=== PATIENT | female | born 1955 | race Caucasian/White ===

== ENCOUNTER → 2018-01-26 | Outpatient (CLI) | payer BC, OTHER | LOC: HYPER 07:00 | DX: T63.331A Toxic effect of venom of brown recluse spider, accidental (unintentional), initial encounter (principal); E03.9 Hypothyroidism, unspecified; G47.33 Obstructive sleep apnea (adult) (pediatric); E78.5 Hyperlipidemia, unspecified; K21.9 Gastro-esophageal reflux disease without esophagitis; Y92.89 Other specified places as the place of occurrence of the external cause; K74.60 Unspecified cirrhosis of liver ==

== ENCOUNTER → 2018-02-02 | Outpatient (CLI) | payer BC, OTHER | LOC: HYPER 06:49 | DX: S80.861D Insect bite (nonvenomous), right lower leg, subsequent encounter (principal); E03.9 Hypothyroidism, unspecified; E78.5 Hyperlipidemia, unspecified; K21.9 Gastro-esophageal reflux disease without esophagitis; M10.9 Gout, unspecified; G47.33 Obstructive sleep apnea (adult) (pediatric); Z87.01 Personal history of pneumonia (recurrent); T63.331D Toxic effect of venom of brown recluse spider, accidental (unintentional), subsequent encounter ==

== ENCOUNTER → 2018-04-12 | Outpatient (CLI) | payer BC, OTHER | LOC: HYPER 07:18 | DX: L97.822 Non-pressure chronic ulcer of other part of left lower leg with fat layer exposed (principal); I87.2 Venous insufficiency (chronic) (peripheral); L95.9 Vasculitis limited to the skin, unspecified; E03.9 Hypothyroidism, unspecified; E78.5 Hyperlipidemia, unspecified; K21.9 Gastro-esophageal reflux disease without esophagitis; M10.9 Gout, unspecified; G47.33 Obstructive sleep apnea (adult) (pediatric); J15.7 Pneumonia due to Mycoplasma pneumoniae ==

== ENCOUNTER → 2018-04-19 | Outpatient (CLI) | payer BC, OTHER | LOC: HYPER 07:14 | DX: L97.822 Non-pressure chronic ulcer of other part of left lower leg with fat layer exposed (principal); L95.9 Vasculitis limited to the skin, unspecified; R60.0 Localized edema; E03.9 Hypothyroidism, unspecified; E78.5 Hyperlipidemia, unspecified; G47.33 Obstructive sleep apnea (adult) (pediatric); K21.9 Gastro-esophageal reflux disease without esophagitis; K74.60 Unspecified cirrhosis of liver; M19.90 Unspecified osteoarthritis, unspecified site; M10.9 Gout, unspecified; M06.4 Inflammatory polyarthropathy ==

== ENCOUNTER → 2018-05-03 | Outpatient (CLI) | payer BC, OTHER | LOC: HYPER 04-26 08:49 | DX: L97.822 Non-pressure chronic ulcer of other part of left lower leg with fat layer exposed (principal); L95.9 Vasculitis limited to the skin, unspecified; R60.0 Localized edema; E03.9 Hypothyroidism, unspecified; E78.5 Hyperlipidemia, unspecified; G47.33 Obstructive sleep apnea (adult) (pediatric); K21.9 Gastro-esophageal reflux disease without esophagitis; K74.60 Unspecified cirrhosis of liver; K75.4 Autoimmune hepatitis; M06.4 Inflammatory polyarthropathy; M35.00 Sjogren syndrome, unspecified; M19.90 Unspecified osteoarthritis, unspecified site; M10.9 Gout, unspecified ==

== ENCOUNTER → 2018-05-10 | Outpatient (CLI) | payer BC, OTHER | LOC: HYPER 06:57 | DX: L97.822 Non-pressure chronic ulcer of other part of left lower leg with fat layer exposed (principal); L95.9 Vasculitis limited to the skin, unspecified; E03.9 Hypothyroidism, unspecified; E78.5 Hyperlipidemia, unspecified; G47.33 Obstructive sleep apnea (adult) (pediatric); K21.9 Gastro-esophageal reflux disease without esophagitis; K74.60 Unspecified cirrhosis of liver; K75.4 Autoimmune hepatitis; M35.00 Sjogren syndrome, unspecified; M06.4 Inflammatory polyarthropathy; M10.9 Gout, unspecified ==

== ENCOUNTER → 2018-05-17 | Outpatient (CLI) | payer BC, OTHER | LOC: HYPER 06:54 | DX: L97.822 Non-pressure chronic ulcer of other part of left lower leg with fat layer exposed (principal); L95.9 Vasculitis limited to the skin, unspecified; E03.9 Hypothyroidism, unspecified; E78.5 Hyperlipidemia, unspecified; G47.33 Obstructive sleep apnea (adult) (pediatric); K21.9 Gastro-esophageal reflux disease without esophagitis; K74.60 Unspecified cirrhosis of liver; K75.4 Autoimmune hepatitis; M35.00 Sjogren syndrome, unspecified; M19.90 Unspecified osteoarthritis, unspecified site; M06.9 Rheumatoid arthritis, unspecified; M10.9 Gout, unspecified ==

== ENCOUNTER → 2018-05-25 | Outpatient (CLI) | payer BC, OTHER | LOC: HYPER 07:17 | DX: L97.822 Non-pressure chronic ulcer of other part of left lower leg with fat layer exposed (principal); L95.9 Vasculitis limited to the skin, unspecified; E03.9 Hypothyroidism, unspecified; E78.5 Hyperlipidemia, unspecified; G47.33 Obstructive sleep apnea (adult) (pediatric); K21.9 Gastro-esophageal reflux disease without esophagitis; K74.60 Unspecified cirrhosis of liver; M35.00 Sjogren syndrome, unspecified; M19.90 Unspecified osteoarthritis, unspecified site; M06.4 Inflammatory polyarthropathy; M10.9 Gout, unspecified ==

== ENCOUNTER → 2018-05-31 | Outpatient (CLI) | payer BC, OTHER | LOC: HYPER 07:13 | DX: L97.822 Non-pressure chronic ulcer of other part of left lower leg with fat layer exposed (principal); L95.9 Vasculitis limited to the skin, unspecified; E03.9 Hypothyroidism, unspecified; E78.5 Hyperlipidemia, unspecified; G47.33 Obstructive sleep apnea (adult) (pediatric); K21.9 Gastro-esophageal reflux disease without esophagitis; K74.60 Unspecified cirrhosis of liver; M35.00 Sjogren syndrome, unspecified; M19.90 Unspecified osteoarthritis, unspecified site; M06.4 Inflammatory polyarthropathy; M10.9 Gout, unspecified ==

== ENCOUNTER → 2018-06-15 | Outpatient (CLI) | payer BC, OTHER | LOC: HYPER 06:33 | DX: L97.822 Non-pressure chronic ulcer of other part of left lower leg with fat layer exposed (principal); L95.9 Vasculitis limited to the skin, unspecified; E03.9 Hypothyroidism, unspecified; E78.5 Hyperlipidemia, unspecified; G47.33 Obstructive sleep apnea (adult) (pediatric); K21.9 Gastro-esophageal reflux disease without esophagitis; K74.60 Unspecified cirrhosis of liver; M35.00 Sjogren syndrome, unspecified; M19.90 Unspecified osteoarthritis, unspecified site; M06.4 Inflammatory polyarthropathy; M10.9 Gout, unspecified ==

== ENCOUNTER → 2018-06-23 | Outpatient (CLI) | payer BC, OTHER | LOC: HYPER 07:11 | DX: L97.822 Non-pressure chronic ulcer of other part of left lower leg with fat layer exposed (principal); L95.9 Vasculitis limited to the skin, unspecified; E03.9 Hypothyroidism, unspecified; E78.5 Hyperlipidemia, unspecified; G47.33 Obstructive sleep apnea (adult) (pediatric); K21.9 Gastro-esophageal reflux disease without esophagitis; K74.60 Unspecified cirrhosis of liver; M35.00 Sjogren syndrome, unspecified; M06.4 Inflammatory polyarthropathy; M85.80 Other specified disorders of bone density and structure, unspecified site; M10.9 Gout, unspecified ==

== ENCOUNTER → 2018-06-29 | Outpatient (CLI) | payer BC, OTHER | LOC: HYPER 06:52 | DX: L97.822 Non-pressure chronic ulcer of other part of left lower leg with fat layer exposed (principal); L95.9 Vasculitis limited to the skin, unspecified; E03.9 Hypothyroidism, unspecified; E78.5 Hyperlipidemia, unspecified; G47.30 Sleep apnea, unspecified; K21.9 Gastro-esophageal reflux disease without esophagitis; K74.60 Unspecified cirrhosis of liver; M35.00 Sjogren syndrome, unspecified; M06.4 Inflammatory polyarthropathy; M10.9 Gout, unspecified; M85.80 Other specified disorders of bone density and structure, unspecified site ==

== ENCOUNTER → 2018-07-14 | Outpatient (CLI) | payer BC, OTHER | LOC: HYPER 07-06 12:48 | DX: L97.822 Non-pressure chronic ulcer of other part of left lower leg with fat layer exposed (principal); L95.9 Vasculitis limited to the skin, unspecified; E03.9 Hypothyroidism, unspecified; E78.5 Hyperlipidemia, unspecified; G47.33 Obstructive sleep apnea (adult) (pediatric); K21.9 Gastro-esophageal reflux disease without esophagitis; K74.60 Unspecified cirrhosis of liver; M35.00 Sjogren syndrome, unspecified; M06.4 Inflammatory polyarthropathy; M85.88 Other specified disorders of bone density and structure, other site; M10.9 Gout, unspecified ==

== ENCOUNTER → 2018-07-21 | Outpatient (CLI) | payer BC, OTHER | LOC: HYPER 07:33 | DX: L97.822 Non-pressure chronic ulcer of other part of left lower leg with fat layer exposed (principal); L95.9 Vasculitis limited to the skin, unspecified; E03.9 Hypothyroidism, unspecified; E78.5 Hyperlipidemia, unspecified; G47.33 Obstructive sleep apnea (adult) (pediatric); K21.9 Gastro-esophageal reflux disease without esophagitis; K74.60 Unspecified cirrhosis of liver; M35.00 Sjogren syndrome, unspecified; M19.90 Unspecified osteoarthritis, unspecified site; M06.4 Inflammatory polyarthropathy; M85.88 Other specified disorders of bone density and structure, other site; M10.9 Gout, unspecified ==